=== PATIENT | female | born 1985 | race Caucasian/White ===

== ENCOUNTER 2023-05-04 11:06 | Emergency (ER) | payer OTHER ==
[~2023-05-04] VITALS: Ht 160 cm; Wt 72.6 kg
[~2023-05-04 11:06] MED LIST: DIPH25CA53 PO; DROS1TAB2 PO; DULO60CA45 PO; DULO60CA64 PO; FAMO20TA8 PO; GABA300C PO; LOSA1TAB37 PO; MAGN250T35 PO; METO50TA9 PO; NAPR220C62 PO; ONDA4TAB10 PO; OXCA300T46 PO; QUET50TA PO; TIZA4CAP8 PO; ZOLP10TA6 PO
[2023-05-04 12:55] LABS: BASOPHILS # (AUTO) 0.03 K/uL (0.00-0.20); EOSINOPHILS # (AUTO) 0.05 K/uL (0.00-0.70); EOSINOPHILS % (AUTO) 1.6 % (0.0-8.0); HEMATOCRIT 30.4 % (36-48); IMMATURE GRANULOCYTE ABSOLUTE 0.01 K/uL (0-1); LYMPHOCYTES # (AUTO) 0.7 K/uL (1.0-4.8); LYMPHOCYTES % (AUTO) 20.6 % (21.0-51.0); MEAN CORPUSCULAR HEMOGLOBIN 26.6 pg (27.0-33.0); MEAN CORPUSCULAR HGB CONC 32.2 g/dL (32.0-36.0); MEAN CORPUSCULAR VOLUME 82.6 fL (79-99); MONOCYTES # (AUTO) 0.4 K/uL (0.1-1.0); MONOCYTES % (AUTO) 12.1 % (3.0-13.0); NEUTROPHILS % (AUTO) 64.4 % (40.0-77.0); PLATELET COUNT (AUTO) 258 K/uL (130-400); RED BLOOD CELL COUNT(AUTO) 3.68 MIL/uL (4.00-5.50); RED CELL DISTRIBUTION WIDTH 14.7 % (11.0-15.5); WHITE BLOOD COUNT (AUTO) 3.2 K/uL (4.8-10.8)
[2023-05-04 13:06] LABS: POTASSIUM 3.4 mmol/L (3.5-5.1)
[2023-05-04 13:16] LABS: ALBUMIN 3.4 g/dL (3.5-5.0); BILIRUBIN,TOTAL 0.8 mg/dL (0.2-1.0); TOTAL PROTEIN, SERUM 6.9 g/dL (6.0-8.3)
[2023-05-04] MEDS: 0.9%NACL 1000ML 1,000 ML IV ONE (13:32)
[2023-05-04] MEDS: KETOROLAC 30MG VIAL (30MG/ML) IVP ONE ×2 (13:33→18:15)
[2023-05-04] MEDS: KETOROLAC 15MG/ML VIAL (15MG/ML) ONE (13:33)
[2023-05-04 13:52] LABS: APPEARANCE,URINE CLOUDY (CLEAR); BILIRUBIN,URINE NEGATIVE (NEGATIVE); COLOR,URINE YELLOW (YELLOW); GLUCOSE, URINE (UA) NEGATIVE (NEGATIVE); KETONES,URINE NEGATIVE (NEGATIVE); LEUKOCYTE ESTERASE ,URINE 500 Leu/uL (NEGATIVE); NITRATE,URINE NEGATIVE (NEGATIVE); OCCULT BLOOD,URINE NEGATIVE (NEGATIVE); PROTEIN,URINE 30 mg/dL (NEGATIVE)
[2023-05-04 14:26] LABS: ADD UA MICROSCOPIC YES
[2023-05-04 14:31] LABS: BACTERIA,URINE RARE /HPF (None Seen); MUCUS,URINE FEW LPF (None Seen); RBC,URINE 0-1 /HPF (0-1); SQUAMOUS EPITHELIAL CELL,UR FEW /HPF (0-2)
[2023-05-04] MEDS: ONDANSETRON 4MG INJ IVP ONE (15:57)
[2023-05-04] MEDS ORDERED: IOHEXOL-350 75 ML VIAL IV ONE (17:21)
[2023-05-04] MEDS: CEFTRIAXONE 1G VIAL IVPB ONE (18:17)
[2023-05-04] MEDS ORDERED: MACR100 PO (18:20)
[2023-05-04 18:43] VITALS: BP 112/78; PULSE 89; RESP 18; O2SAT 98
== END 2023-05-04 18:44 | disposition home or self-care (01) ==
LOC: EDH 11:06
DX: N39.0 Urinary tract infection, site not specified (principal); R79.89 Other specified abnormal findings of blood chemistry; F41.9 Anxiety disorder, unspecified; F32.A Depression, unspecified; Z79.899 Other long term (current) drug therapy; Z88.5 Allergy status to narcotic agent; Z90.49 Acquired absence of other specified parts of digestive tract
CPT/HCPCS: 99285; 74177; 76705; 96365; 96375; 96361; 80053; 83690; 85025; 87088; 81001; 36415; 76856; 96376; J7030; J0696; J2405; J1885 ×2; Q9967